=== PATIENT | male | born 1980 | race Caucasian/White ===

== ENCOUNTER 2019-06-29 13:46 | Emergency (ER) | payer MEDICAID ==
[~2019-06-29] VITALS: Ht 170.2 cm; Wt 61.2 kg
[2019-06-29 13:59] VITALS: Ht 170.2 cm; Wt 61.2 kg
[2019-06-29 15:47] VITALS: BP 125/72
== END 2019-06-29 15:31 | disposition home or self-care (01) ==
LOC: ED 13:46
DX: J98.01 Acute bronchospasm (principal); R50.9 Fever, unspecified; F17.210 Nicotine dependence, cigarettes, uncomplicated
CPT/HCPCS: 99406; Q0092